=== PATIENT | male | born 1995 | race Caucasian/White ===

== ENCOUNTER 2017-10-03 14:05 | Emergency (ER) | payer OTHER, SELFPAY ==
[2017-10-03 14:06] VITALS: BP 167/104; PULSE 81; RESP 18; TEMP 37.6; BMI 28.3
--- NOTE | 2017-10-03 14:53 | ED.VISSUMM ---
- ER Visit Summary Date of Service: 10/03/17 Chief Complaint: Left finger laceration History of Present Illness: The patient is a 22 M with allergy to tetanus and no medical problems who presents for laceration to the base of the left index finger that occurred prior to arrival. 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 He slipped while trying to catch a piece that dropped, and stabbed himself in the finger. Patient controlled the hemorrhage with pressure and cornstarch application. He has no other complaints. No numbness or weakness in the finger. He is allergic to tetanus vaccination. Physical Examination: Patient is well-nourished well-developed in no distress sitting in bed. Examination of the right hand shows a 2+ radial pulse. V-shaped superficial incision at base of left index finger, just distal to MCP joint, 1 cm on each side of lac, with hemorrhage controlled. Distal sensation and motor function intact. Full active flexion and extension of all distal joints. Test Results: [] Emergency Department Course and Treatment: Hemorrhage already controlled, and wound edges are well approximated. No evidence of neurovascular injury. Patient uses his hands at work but is off for the next 3 days. AlumaFoam splint was placed to keep the index finger immobile to help promote healing of the laceration. Wound care instructions given. Return precautions given. Patient was discharged home. Treatment Plan: [] Disposition: [] Impression: Laceration to face of left index finger This note was generated with [employer] dictation software. It may contain incorrect words, spelling, and punctuation that were not noted in review of the chart prior to signing ED Disposition - Plan for ED Patient: Chief Complaint: Laceration Referrals: Care Physician,No Primary [Primary Care Provider] -
--- NOTE | 2017-10-03 14:56 | ED.DCSUM_ITS ---
- ER Visit Summary Date of Service: 10/03/17 Chief Complaint: Left finger laceration History of Present Illness: The patient is a 22 M with allergy to tetanus and no medical problems who presents for laceration to the base of the left index finger that occurred prior to arrival. 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 He slipped while trying to catch a piece that dropped, and stabbed himself in the finger. Patient controlled the hemorrhage with pressure and cornstarch application. He has no other complaints. No numbness or weakness in the finger. He is allergic to tetanus vaccination. Physical Examination: Patient is well-nourished well-developed in no distress sitting in bed. Examination of the right hand shows a 2+ radial pulse. V-shaped superficial incision at base of left index finger, just distal to MCP joint, 1 cm on each side of lac, with hemorrhage controlled. Distal sensation and motor function intact. Full active flexion and extension of all distal joints. Test Results: [] Emergency Department Course and Treatment: Hemorrhage already controlled, and wound edges are well approximated. No evidence of neurovascular injury. Patient uses his hands at work but is off for the next 3 days. AlumaFoam splint was placed to keep the index finger immobile to help promote healing of the laceration. Wound care instructions given. Return precautions given. Patient was discharged home. Treatment Plan: [] Disposition: [] Impression: Laceration to face of left index finger This note was generated with [email or web address] dictation software. It may contain incorrect words, spelling, and punctuation that were not noted in review of the chart prior to signing ED Disposition - Plan for ED Patient: Chief Complaint: Laceration Referrals: Care Physician,No Primary [Primary Care Provider] -
--- NOTE | 2017-10-03 14:58 | ED.DEP ---
ED Disposition - Plan for ED Patient: Disposition: Home or Assisted Living Chief Complaint: Laceration Instructions: ED Laceration Hand Referrals: Care Physician,No Primary [Primary Care Provider] -
[2017-10-03 15:47] VITALS: PULSE 88; RESP 16; O2SAT 97
== END 2017-10-03 15:52 | disposition home or self-care (01) ==
PROVIDERS: Emergency Provider Emergency Medicine
DX: S61.211A Laceration without foreign body of left index finger without damage to nail, initial encounter (principal); W26.0XXA Contact with knife, initial encounter; Y93.G3 Activity, cooking and baking; Y92.9 Unspecified place or not applicable; Y99.9 Unspecified external cause status
CPT/HCPCS: 99283

== ENCOUNTER 2020-07-17 17:28 | Outpatient (RCR) | payer OTHER, SELFPAY ==
[2020-07-17] MEDS: COVID-19 VACC, MRNA(PFIZER)/PF 30 MCG/0.3 ML SYRINGE IM (07:14)
[2020-08-07] MEDS: COVID-19 VACC, MRNA(PFIZER)/PF 30 MCG/0.3 ML SYRINGE IM (07:17)
== END 2020-07-17 23:59 ==
LOC: IMMUN 17:28
PROVIDERS: Visit Provider Family Medicine
DX: Z23 Encounter for immunization (principal)
CPT/HCPCS: 0001A; 0002A; 91300

== ENCOUNTER 2024-09-05 13:54 | Emergency (ER) | payer OTHER, SELFPAY ==
[2024-09-05 13:55] VITALS: BP 135/105; PULSE 90; RESP 17; TEMP 36.9; O2SAT 98; BMI 28.6
[2024-09-05 14:25] LABS: Absolute Lymphocyte Count 1.13 X10^3/uL (0.83-4.51); Basophil# 0.02 X10^3/uL; Basophil% 0.4 % (0-1); Hematocrit 43.8 % (40-54); Hemoglobin 16.2 g/dL (13.0-16.5); Lymphocyte # 1.13 X10^3/ul (0.83-4.51); Lymphocyte % 23.2 % (19-41); Mean Corpuscular Hgb 30.9 pg (27.0-32.0); Mean Corpuscular Volume 83.6 fL (80-94); Mean Platelet Vol. 8.9 fl (6.2-12.0); Monocyte# 0.69 X10^3/uL; Monocyte% 14.2 % (0-10); NRBC Flagged by Analyzer 0 % (0-5); Neutrophil % 61.6 % (47-70); Platelet Count 209 K/mm3 (150-450); RBC Distribution Width CV 12.4 % (11.6-14.6); RBC Distribution Width SD 37.6 fl (35.1-43.9); Red Blood Count 5.24 M/mm3 (4.6-6.2); White Blood Count 4.9 K/mm3 (4.4-11.0)
--- NOTE | 2024-09-05 14:40 | US_ITS ---
PROCEDURE: GALLBLADDER (USGB), 09/05/2024 REASON FOR EXAM: PAIN COMPARISON: None FINDINGS: Liver: Unremarkable. 17.3 cm in length. Gallbladder: Physiologically distended with layering sludge. No visualized stones, or pericholecystic fluid. Wall thickness measured at 5 mm but favored overestimated with remeasurement of 3 mm. Reportedly, sonographic Hensley's was positive. Biliary tree: CBD borderline mildly dilated for age at 7 mm. This measured roughly [address], reported separately. Pancreas: Partially obscured by shadowing bowel gas, grossly unremarkable as visualized. Right kidney: Unremarkable. 10.8 cm in length. Other: No visualized free fluid. US/Gallbladder IMPRESSION: 1. Findings related to the gallbladder are equivocal. No visualized cholelithi asis, however there is borderline minimal gallbladder wall thickening and reported positive sonographic Hensley's sign whi ch should be confirmed by clinician exam. No visualized pericholecystic fluid to confirm acute cholecystitis. Although mini mal gallbladder wall thickening could be technical, in addition to acute/chronic cholecystitis, this finding can also be seen in the setting of 3rd spacing, venous congestion, or may be reactive to a primarily hepatic process. If there is per sistent clinical ambiguity, consider HIDA. 2. Borderline minimal dilatation of the CBD for patient age without visualized choledocholithiasis or other obstructing process. Notably, CBD caliber was normal on concurrent CT. Correlate with serum bilirub in and consider MRCP. 3. Additional description as above. Reading Location: [id number]
[2024-09-05] MEDS: 0.9% Normal Saline (1000mL) 1,000 ML 999 ML IV (14:46)
--- NOTE | 2024-09-05 14:52 | ED.VIS.GI ---
HPI HPI - GI History of Present Illness Chief Complaint: Abd Pain Informant: patient Narrative Narrative: Right side abdominal pain started 3 days ago states went home from work. He states he was sweaty throughout the night. Patient reports to spouse that he was seeing things at night. Things improved the following day however had mild discomfort. Yesterday pain returned and worsened. Nausea when pain comes. No vomiting. Overnight watery yellow stool was nonbloody. No abdominal surgeries in the past. No urinary symptoms. Patient states able to eat last couple days with no worsening symptoms. His initial symptoms did start after eating supper. Prior similar symptoms: No PFSH PFSH Home Medications ?Medication ?Instructions ?Recorded ?Last Taken ?Type cetirizine 10 mg capsule (All Day 10 mg PO DAILY 09/05/24 09/05/24 History Allergy (cetirizine)) fluticasone propionate 50 1 spray intranasal DAILY 09/05/24 09/04/24 History mcg/actuation nasal spray,suspension (24 Hour Allergy Relief) montelukast 10 mg tablet 10 mg PO DAILY 09/05/24 09/05/24 History Allergy/AdvReac Type Severity Reaction Status Date / Time tetanus toxoid, adsorbed Allergy Other Verified 09/05/24 13:54 Social History Smoking Status: Never smoker ROS ROS ED Constitutional Constitutional ED: Denies chills, fever(s) or sweats ENT ENT ED: Denies sore throat Cardiovascular Cardiovascular: Denies chest pain, leg edema, palpitations or racing heartbeat Respiratory/Chest Respiratory/Chest: Denies cough, dyspnea or dyspnea on exertion Gastrointestinal Gastrointestinal: Reports abdominal pain; Denies diarrhea, nausea or vomiting Genitourinary Genitourinary ED: Denies dysuria, hematuria or urinary frequency Musculoskeletal Musculoskeletal: Denies back pain, extremity pain or neck pain Integumentary Denies rash or wounds Neurologic Neurologic: Denies headache(s), paresthesias or weakness EXAM Physical Exam Const Vital Signs: 09/05/24 13:55 09/05/24 15:54 Temperature 98.5 F Temperature Source Temporal Pulse Rate 90 80 Respiratory Rate 17 12 Blood Pressure 135/105 H 148/94 H Blood Pressure Mean 115 112 Pulse Ox 98 98 Oxygen Delivery Method Room Air Room Air Positive well nourished and well developed General Appearance ED: well developed and NAD HEENT Reports moist mucous membranes normocephalic and atraumatic Eyes General Eye ED: Yes normal appearance of both eyes Neck full ROM Chest Wall Chest: Negative for tenderness Resp normal respiratory effort and normal air movement Effort and Inspection: symmetric chest movement; Negative for respiratory distress Cardio regular rate, regular rhythm and no murmurs Peripheral Pulses: pulses 2+ throughout GI normal to inspection, nondistended, normoactive bowel sounds GI Narrative: Patient with tenderness right side to center of the rib however negative Hensley sign. No pain right lower quadrant. Negative Rovsing's. No guarding or rebound. Palpation: Negative for guarding or rebound tenderness present Extremity normal to inspection General Extremety ED: Negative for edema or tenderness General Extremity: Negative for edema Neuro oriented x3 and no sensory deficits noted Sensorium / Orientation: awake and alert Skin no rashes or lesions noted and no wounds MDM MDM MDM Narrative Medical decision making narrative: Interventions / MDM: Differential diagnosis: Biliary colic, abdominal pain Diagnosis considered but do not suspect: No clinical cholecystitis, appendicitis however CT negative. My EKG interpretation: N/A Imaging independently reviewed and interpreted by myself: CT abdomen pelvis IV contrast: Normal appendix, mesenteric adenitis noted. Right upper quadrant ultrasound: Gallbladder wall 5 mm positive Hensley sign, no gallstones no pericholecystic fluid. External documents reviewed: N/A Test considered but not ordered:N/A ED course: Patient declines any pain medications. Mild dry mucosal membranes. IV established fluids abdominal labs per nursing protocol. Pain in the right upper quadrant region however he is able to eat without any worsening pain. He is having sweats at home. More loose stools. I will obtain both ultrasound right upper quadrant and CT scan of abdomen for further evaluation. 1620: We discussed with the patient with equivocal ultrasound he ate chicken with carrots no rancher since Tuesday with symptoms started an hour later. He is can had mild symptoms that did not bother him until yesterday. Apparently ate mashed potatoes did have cream cheese in it. This morning at 10:00 he had sausage that worsen the symptoms. 1625: I spoke with on-call surgeon Dr. Strong, discussed patient's history and findings. He reviewed the imaging she did not feel the gallbladder causey are thickened. I do agree that this likely gallbladder issues, however no clinical cholecystitis this time. We discussed options for the patient if concerns for pain which is not requiring pain medicine at that time can admit to the hospital versus close outpatient follow-up in the office reevaluation discussion for elective surgery and strict return precautions. Patient elects to continue bland diet with follow-up in surgery office. All questions were answered. Re-evaluation: stable Disposition discussed with patient/family/significant other: Patient and spouse Case discussed with consulting clinician: General Surgery This note was generated with [employer] dictation software. It may contain incorrect words, spelling, and punctuation that were not noted in checking the note before signing. Lab Data Attestation: I reviewed the patient's lab results. Labs: Laboratory Results - last 24 hr 09/05/24 09/05/24 14:17 15:35 WBC 4.9 RBC 5.24 Hgb 16.2 Hct 43.8 MCV 83.6 MCH 30.9 MCHC 37.0 H RDW Std Deviation 37.6 RDW Coeff of Juliann 12.4 Plt Count 209 MPV 8.9 Immature Gran % (Auto) 0.600 Neut % (Auto) 61.6 Lymph % (Auto) 23.2 [place] % (Auto) 14.2 H Eos % (Auto) 0.0 Baso % (Auto) 0.4 Absolute Neuts (auto) 3.0 Absolute Lymphs (auto) 1.13 Nucleated RBC % 0 Sodium 138 Potassium 3.9 Chloride 102 Carbon Dioxide 24.9 Anion Gap 11 BUN 12 Creatinine 0.89 Estim Creat Clear Calc 130.26 Est GFR (MDRD) Non-Af 119 BUN/Creatinine Ratio 13.7 Glucose 108 H Calcium 8.9 Total Bilirubin 1.17 AST 22 ALT 20 Alkaline Phosphatase 81 Total Protein 7.0 Albumin 4.4 Globulin 2.6 Albumin/Globulin Ratio 1.7 Lipase 22 Urine Color Yellow Urine Clarity Clear Urine pH 7.0 Ur Specific [place] 1.005 Urine Protein TNP Urine Glucose (UA) Normal Urine Ketones Negative Urine Occult Blood Negative Urine Nitrite Negative Urine Bilirubin Negative Urine Urobilinogen Normal Ur Leukocyte Esterase Negative Radiography Diagnostic Testing: Clinical Impression(s) from Imaging Studies Gallbladder Ultrasound 09/05/24 14:40 IMPRESSION: 1. Findings related to the gallbladder are equivocal. No visualized cholelithiasis, however there is borderline minimal gallbladder wall thickening and reported positive sonographic Hensley's sign which should be confirmed by clinician exam. No visualized pericholecystic fluid to confirm acute cholecystitis. Although minimal gallbladder wall thickening could be technical, in addition to acute/chronic cholecystitis, this finding can also be seen in the setting of 3rd spacing, venous congestion, or may be reactive to a primarily hepatic process. If there is persistent clinical ambiguity, consider HIDA. 2. Borderline minimal dilatation of the CBD for patient age without visualized choledocholithiasis or other obstructing process. Notably, CBD caliber was normal on concurrent CT. Correlate with serum bilirubin and consider MRCP. 3. Additional description as above. Reading Location: [facility] Abdomen/Pelvis CT 09/05/24 14:55 IMPRESSION: 1. No clear acute findings. 2. Mild mesenteric lymphadenopathy, nonspecific and potentially reactive in the absence of known malignancy. Note that this finding can be seen in the setting of mesenteric adenitis given the appropriate clinical context. 3. Mild splenomegaly. 4. Additional description as above. Reading Location: [facility] Discharge Plan Triage Chief Complaint: Abd Pain ED Provider: Yosvany Collazo Dx/Rx/DC Orders Clinical Impression: Biliary colic, Abdominal pain Instructions: ED Gallstones with Biliary Colic Prescriptions: No Action montelukast 10 mg tablet 10 mg PO DAILY All Day Allergy (cetirizine) 10 mg capsule 10 mg PO DAILY fluticasone propionate [24 Hour Allergy Relief] 50 mcg/actuation spray,suspension 1 spray intranasal DAILY Rx Instructions: administer into each nostril Primary Care Provider: Celeste Sierra NP Referrals: Candace Strong MD [Med Staff - Active Staff] - 2 Days Celeste Sierra NP, [employer]HOU[employer] WORKER-C [Primary Care Provider] - Activity Restrictions/Additional Instructions: Discussed with Dr. Strong in the ED. No gallstones, no acute inflammation on ultrasound. Labs are normal. Avoid greasy foods dairy foods fatty foods. Call to be seen in the office by the end the week. Plan for outpatient procedure if needed. If you develop worsening symptoms, return to the ED. Print Language: Armenian Disposition Disposition: Home, Self Care
--- NOTE | 2024-09-05 14:55 | CT_ITS ---
PROCEDURE: ABDOMEN/PELVIS W IV CONT ONLY (procedure code [id number]), 09/05/2024 REASON FOR EXAM: RIGHT SIDE PAIN TECHNIQUE: CT abdomen and pelvis was performed with IV contrast. Multiplanar reformats were generated. CONTRAST: Isovue-300 VOLUME: 98mL RADIATION DOSE SUMMARY: CTDlvol: 12.15+ 11.13 mGy DLP: 582.87 mGycm One or more dose reduction techniques were used (e.g., Automated exposure control, adjustment of the mA and/or kV according to patient size, use of iterative reconstruction technique). COMPARISON: None FINDINGS: Lung bases: Minimal atelectasis/scarring.. Liver: Unremarkable. Spleen: Mild splenomegaly, 14.3 cm coronal.. Gallbladder: Grossly unremarkable though better evaluated on concurrent separately dictated ultrasound. Pancreas: Unremarkable. Adrenals: Unremarkable. Kidneys: Unremarkable. Bowel: Unremarkable. Normal caliber appendix. Lymph nodes: Mild mesenteric lymphadenopathy, nodes up to 11 mm short axis. Mildly prominent but nonenlarged retroperitoneal nodes Vasculature: Unremarkable. Peritoneum: Unremarkable. Bladder: Underdistended and suboptimally evaluated, grossly unremarkable. Reproductive Organs: 1.8 cm posterior midline presumed prostatic utricle cyst, normal variant. Body Wall: Tiny fat containing umbilical hernia.. Bones: Unremarkable. CT/Abdomen/Pelvis W IV Cont ONLY IMPRESSION: 1. No clear acute findings. 2. Mild mesenteric lymphadenopathy, nonspecific and potentially reactive in the absence of known malignancy. Note that this finding can be seen in the setting of mesenteric adenitis given the appropriate clinical context. 3. Mild splenomegaly. 4. Additional description as above. Reading Location: [id number]
[2024-09-05 15:20] LABS: ALB/GLOB Ratio 1.7 RATIO (0.9-2.4); AST(SGOT) 22 U/L (<=37); Alanine Aminotransfer ALT/SGPT 20 U/L (<=46); Albumin, Serum 4.4 g/dL (3.5-5.0); Alkaline Phosphatase 81 U/L (40-129); Anion Gap 11 (5-15); BUN 12 mg/dL (4-19); BUN/Creat Ratio 13.7 RATIO (10-20); Calcium,Total 8.9 mg/dL (7.6-11.0); Carbon Dioxide 24.9 mmol/L (21.0-32.0); Chloride 102 mmol/L (98-108); Creatinine, Serum 0.89 mg/dL (0.70-1.20); EST Glomerular Filtration Rate 119 (>60); Estimated Creatinine Clearance 130.26 ml/min (50-250); Globulin 2.6 g/dL (2.2-4.2); Glucose 108 mg/dL (70-99); Lipase 22 U/L (13-75); Potassium 3.9 mmol/L (3.3-5.1); Sodium Level 138 mmol/L (133-145); Total Bilirubin 1.17 mg/dL (0.00-1.30)
[2024-09-05 15:42] LABS: Bacteria 0 SEEN /hpf (None Seen); Mucous, Urine 0 SEEN /hpf (<or=2+)
[2024-09-05 15:51] LABS: Color, Urine Yellow (Yellow); Glucose, Dipstick Normal (Normal); Ketone-Dipstick Negative (Negative); Leukocyte Esterase-Dipstick Negative /ul (Negative); Nitrite-Dipstick Negative (Negative); Occult Blood-Urine Negative /ul (Negative); Specific Gravity, Urine 1.005 (1.002-1.030); Urine Bilirubin Dipstick Negative (Negative); Urine Clarity Clear (Clear); Urine Urobilinogen Normal (Normal)
[2024-09-05 15:54] VITALS: BP 148/94; PULSE 80; RESP 12; O2SAT 98
[2024-09-05 17:00] VITALS: BP 102/67; PULSE 66; RESP 18; O2SAT 99
[2024-09-05 17:05] VITALS: BP 117/81; PULSE 88; RESP 16; TEMP 37.1; O2SAT 100
[2024-09-05 17:35] LABS: Red Blood Cells-Urine 0-5 SEEN /hpf (0-5); Squamous Epithelial Cells - UA 0-5 SEEN /hpf (0-5); White Blood Cells 0-5 SEEN /hpf (0-5)
[2024-09-05 17:45] LABS: Protein, Urine (Random) 7.5 mg/dL (0.0-12.0)
== END 2024-09-05 17:07 | disposition home or self-care (01) ==
PROVIDERS: Emergency Provider Emergency Medicine; PCP Nurse Practitioner; Referring Provider Emergency Medicine; Visit Provider Emergency Medicine
DX: K80.50 Calculus of bile duct without cholangitis or cholecystitis without obstruction (principal); I88.0 Nonspecific mesenteric lymphadenitis; R19.7 Diarrhea, unspecified; Z79.899 Other long term (current) drug therapy
CPT/HCPCS: 74177; 76705; 80053; 81001; 83690; 84156; 85025; 96360; 99283; Q9967; A4216

== ENCOUNTER 2024-09-13 05:59 | Day surgery (SDC) | payer OTHER, SELFPAY ==
[2024-09-13] VITALS (12 sets, daily range): BP systolic 115–133; BP diastolic 69–89; PULSE 72–84; RESP 14–18; TEMP 36.6–37.1; O2SAT 95–100; BMI 28.1
--- NOTE | 2024-09-13 06:31 | EKG12_ITS ---
Test Reason : PREOP Blood Pressure : */* mmHG Vent. Rate : 71 BPM Atrial Rate : 71 BPM P-R Int : 174 ms QRS Dur : 94 ms QT Int : 398 ms P-R-T Axes : 30 42 35 degrees QTcB Int : 432 ms Normal sinus rhythm Normal ECG No previous ECGs available Confirmed by Fran Telles ([id number]), book or script editor CHAPARRO ANTUNEZ ([id number]) on 09/17/2024 11:57:57 AM Referred By: Candace Strong Confirmed By: Fran Telles
[2024-09-13] MEDS: Lactated Ringers 1,000 ML 15 ML IV (06:47)
[2024-09-13] MEDS: INDOCYANINE GREEN 3.75 MG in Syringe 1.5 ML 999 MG IV (06:48)
--- NOTE | 2024-09-13 07:00 | PRE.ANES_ITS ---
ASA Classification* ASA Classification ASA Classification: 1 Assessment & Plan Anesthesia* Anesthesia Assessment Anesthesia Assessment: Discussed sedation and/or anesthesia options, risks, benefits, and alternatives with patient/parents/legal guardian/POA. Questions invited. The patient/parents/legal guardian/POA seems to understand and agrees to proceed with anesthesia plan. Reviewed the physical assessment, medical history, allergy history and patient home medications list prior to surgery/procedure/anesthetic and documented any changes. Performed airway and anesthesia risk assessments. Anesthesia Type Anesthesia Type: General History Source History Obtained from:: Patient and Chart Anesthesia Focused Assessment* Temperature: 97.8 F Pulse Rate: 72 Blood Pressure: 133/89 Respiratory Rate: 18 Pulse Ox: 98 Oxygen Delivery Method: Room Air Airway Assessment Mouth opens: >3 cm Mallampati Score: III (Patient has a full you.) Teeth Condition: Intact Neck Range of motion (ROM): Full ROM Focused Labs Anesthesia Preop lab: CBC WBC 4.9 K/mm3 (4.4-11.0) 09/05/24 14:17 09/05/24 RBC 5.24 M/mm3 (4.6-6.2) 09/05/24 14:17 09/05/24 Hgb 16.2 g/dL (13.0-16.5) 09/05/24 14:17 09/05/24 Hct 43.8 % (40-54) 09/05/24 14:17 09/05/24 Plt Count 209 K/mm3 (150-450) 09/05/24 14:17 09/05/24 CHEMISTRY Potassium 3.9 mmol/L (3.3-5.1) 09/05/24 14:17 09/05/24 Sodium 138 mmol/L (133-145) 09/05/24 14:17 09/05/24 BUN 12 mg/dL (4-19) 09/05/24 14:17 09/05/24 Creatinine 0.89 mg/dL (0.70-1.20) 09/05/24 14:17 09/05/24 Glucose 108 mg/dL (70-99) H 09/05/24 14:17 09/05/24 COAG Pre-Assessment Diagnosis/Proposed Procedure Planned Operative Procedure(s): Robotic Cholecystectomy with possible IOC Anesthesia History Anesthesia History - medical imaging technologist: Anesthesia History - medical imaging technologist Hx Hospitalization No 09/11/24 13:14 Any Problems With Anesthesia No 09/11/24 13:14 Cholinesterase deficiency No 09/11/24 13:14 You/Your Family Experience No 09/11/24 13:14 fever (hyperthermia) with Relationship Recent Exposure to Contagious No 09/13/24 06:32 Disease Does patient have nerve No 09/11/24 13:14 stimulator Patient instructed to have device shut off --Does patient have Pacemaker No 09/13/24 06:36 or ICD? When Was Last Pacemaker Check QUESTION #4 FULL TEXT: You/Your Family Experience fever (hyperthermia) with Anesthesia Last Oral Intake Last Oral intake: Last Oral Intake NPO since 21:30 09/13/24 06:36 Meds taken in AM with sips of Yes 09/13/24 06:36 water? Meds patient instructed to take am of surgery Any additional information?: Yes Meds taken in AM with sips of water?: Yes Meds patient instructed to take am of surgery: Omeprazole PONV PONV - medical imaging technologist: PONV - medical imaging technologist Female No 09/11/24 13:14 HX of Motion Sickness Yes 09/11/24 13:14 HX of N/V After Surgery No 09/11/24 13:14 Non-Smoker Yes 09/11/24 13:14 Duration of Surgery greater Yes 09/11/24 13:14 than 60 minutes Number of Risk Factors 3 09/11/24 13:14 PONV Score Moderate Risk 09/11/24 13:14 Height & Weight Height & Weight: Anesthesia: Height & Weight Height 5 ft 8 in 09/13/24 06:36 Weight: 83.915 kg 09/13/24 06:36 Body Mass Index (BMI) 28.1 09/13/24 06:36 Respiratory Assessment Respiratory Assessment - medical imaging technologist: Respiratory Tract Infection Hx - medical imaging technologist Hx Respiratory Tract Infection No 09/11/24 13:14 STOP Sleep Apnea STOP Sleep Apnea - medical imaging technologist: STOP Sleep Apnea - medical imaging technologist Hx Hypertension No 09/11/24 13:14 Hx Sleep Apnea No 09/11/24 13:14 CPAP BIPAP Do you snore loudly (louder No 09/11/24 13:14 than talking or can be heard Do you often feel tired/ No 09/11/24 13:14 fatigued/ sleepy during daytime? Has anyone observed you stop No 09/11/24 13:14 breathing during sleep? STOP Results Negative 09/11/24 13:14 QUESTION #5 FULL TEXT : Do you snore loudly (louder than talking or can be heard through closed doors)? 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 Specify any problems Hx of Preganancy in last 3 N/A 09/11/24 13:14 Months Nurse Filling Out Transfusion VCHRISTIN 09/11/24 13:14 & Questions: Date: 09/11/24 09/11/24 13:14 Time: 13:15 09/11/24 13:14 Patient unable to answer at this time (ie. confused, unrespo /Reproduction History /Reproductive History - medical imaging technologist: /Reproductive Hx- medical imaging technologist Hx Now Gestational Age (in weeks): EDC: Hx Hx Para Hx Section SAB Active Medications Active Medications: Current Medications Generic Name Dose Route Start Last Admin Trade Name Freq PRN Reason Stop Dose Admin Cefazolin Sodium 2 gm/ Sodium 110 mls @ 150 mls/hr 09/13/24 12:35 Chloride IV 09/13/24 13:18 INTRAOP ONE Lactated Ringer's 1,000 mls @ 15 mls/hr 09/13/24 06:15 09/13/24 06:47 IV 15 mls/hr .Q48H MORGAN Administration PFSH Medical History Alcohol use Injury of back Migraine headache Non-smoker Cardiology follow-up encounter History of irregular heartbeat Home Medications ?Medication ?Instructions ?Recorded ?Last Taken ?Type cetirizine 10 mg capsule (All Day 10 mg PO DAILY 09/0509/12/24 History Allergy (cetirizine)) fluticasone propionate 50 1 spray intranasal DAILY 09/12/24 History mcg/actuation nasal spray,suspension (24 Hour Allergy Relief) montelukast 10 mg tablet 10 mg PO DAILY 09/05/2411/30 History Lactobacillus acidophilus 10 100 mmu cells PO DAILY 09/11/24 History billion cell capsule (NewFlora) omeprazole 20 mg capsule,delayed 40 mg PO DAILY 09/13/24 04:30 History release Allergy/AdvReac Type Severity Reaction Status Date / Time latex Allergy Severe RASH Verified 09/13/24 06:30 tetanus toxoid, adsorbed Allergy Other Verified 09/13/24 06:30 Social History Smoking Status: Never smoker alcohol intake: current alcohol intake frequency: holidays/special occasions only Review of Systems (Anesthesia) ROS Narrative System reviewed and no additional complaints, except as documented.
--- NOTE | 2024-09-13 07:03 | HP.PCM_ITS ---
History and Physical Date of Admission: 09/13/24 Date of Service: 09/07/24 MR#: [id number] Acct: [id number] Name: NBA CARTER Rep #: [id number] : 1995 Provider: Dr. Candace Strong MD Age/Sex: 29/M Location: [facility] Status: Signed Intake Vital Signs 09/05/2512:55 09/07/2507:43 09/07/2513:25 09/07/2513:53 Height 5 ft 8 in 5 ft 8 in 5 ft 8 in Weight: 189 lb BMI 28.7 BP 169/123 H 138/89 H Blood Pressure Location Rt brachial Rt brachial Position Sitting Sitting Respiration 17 Pulse 72 Pulse Source Monitor Temp 97.3 F L Temp Source Temporal Pulse Oximetry (%) 99 Oxygen Delivery Method room air Intake Visit Reasons: ED FU, ABDOMINAL PAIN Chief Complaint: ED FU, ABDOMINAL PAIN Accompanied by: Is patient in pain?: No Allergies tetanus toxoid, adsorbed Allergy (Verified 09/07/24 14:26) Other Medications ?Medication ?Instructions ?Recorded ?Confirmed ?Type cetirizine 10 mg capsule (All Day 10 mg PO DAILY 09/05/24 09/07/24 History Allergy (cetirizine)) fluticasone propionate 50 1 spray intranasal DAILY 09/05/24 History mcg/actuation nasal spray,suspension (24 Hour Allergy Relief) montelukast 10 mg tablet 10 mg PO DAILY 09/05/24 09/07/24 History PFSH Social History (Updated 09/07/24 @ 14:25 by Manuela Bermudez LPN) Smoking Status: Never smoker alcohol intake: current alcohol intake frequency: holidays/special occasions only HPI HPI HPI: 29-year-old male presents due to gallbladder sludge/right upper quadrant pain. Patient did go to the ER labs were normal at that time CAT scan showed normal gallbladder however gallbladder ultrasound showed gallbladder sludge wall measured 2.2-2.9 per tech, positive Hensley sign per tech, normal common bile duct no pericholecystic fluid. Patient states he did get pain about an hour after eating mashed potatoes on Tuesday which did have sour cream in them as well as on Tuesday after eating some sausage in the morning. Currently patient states his pain is a 2/10. Patient states that he is eating normally had loose stool for about 10 years will frequently have crampy abdominal pain while eating or just after eating have to go use the restroom. Patient did does admit to some indigestion in his lower chest does not describe as burning. No previous abdominal surgeries. ROS General General: No weight change, appetite, fatigue, colon cancer, breast cancer or weakness HEENT HEENT: No difficulty swallowing, eye injury, eye surgery, swollen glands or hoarseness Endo Endocrine: No thyroid disease, diabetes mellitus, thyroid cancer, Hair loss, heat intolerance or cold intolerance Skin Skin: No rash or changing moles Musc Musculoskeletal: No back problems, arthritis, rheumatoid arthritis, gout or joint pain Cardio Cardiovascular: No murmur, pacemaker, heart disease, atrial fibrillation, high blood pressure, heart attack, heart stent, palpitations, shortness of breath with exertion or chest pain Psych Psychiatric: No depression, anxiety or hearing voices Resp Respiratory: No shortness of breath, No sleep apnea, No cough, No COPD, No asthma, No emphysema and No wheezing Gastro Gastrointestinal: Yes abdominal pain, Yes nausea or vomiting, No diarrhea, No constipation, No blood in stool, No acid reflux, No hemorrhoids, No ulcers, Yes gallbladder problem and No black,tarry stools Be Hematologic: No blood thinners, No blood disorders, No bleeding, No anemia and No blood clots Neuro Neurologic: No numbness, No tingling and No weakness Exam Const General: cooperative, healthy appearing, comfortable and no acute distress HENMT Head: normocephalic and atraumatic Neck Neck: supple Resp Effort & Inspection: normal respiratory effort Cardio Rate: regular rate GI Inspection: non-distended Palpation: soft, no hernias and tender (Mild right upper quadrant, no peritoneal signs) Skin General: no rashes or lesions noted Neuro General: CN's II-XI intact bilaterally Extrem General: normal to inspection Psych Mental Status: mental status grossly normal Attitude: cooperative Assessment and Plan Assessment and Plan (1) Gallbladder sludge: Status: Acute (2) RUQ pain: Status: Acute Plan Discussed with patient that he may also have an element of IBS with the cramping after eating and diarrhea which may not be related to his gallbladder. As the right upper quadrant pain is new from Tuesday. May try dicyclomine after cholecystectomy to see if the crampy abdominal pain is still present after surgery. Also recommend patient do [id number] omeprazole 40 mg p.o. daily in the perioperative time period. Instructed patient to avoid any fatty or greasy foods until surgery. Did offer patient a sooner surgery date however work the best for him next week. Patient aware if pain gets worse to come into the ER and may need more emergent cholecystectomy. Reviewed the anatomy with the patient and discussed the procedure: Robotic/laparoscopic cholecystectomy with possible cholangiograms, possible open. Review risks including but not limited to bleeding, infection, hernia, bile leak, retained gallstones requiring another procedure ERCP- Endoscopic Retrograde Cholangiopancreatography, injury to another organ (bile ducts, common bile duct, small bowel, etc.) and conversion to an open procedure. All questions were answered. Candace Strong M.D. Pager: [phone] [facility] [address] [place] [address], [address] [place] [address] Office: [phone] Coding Level of Care Code Off vis,new,level 3 Diagnoses Gallbladder sludge K82.8 RUQ pain R10.11 09/07/24 1504 <Electronically signed by Candace Strong MD> Date Candace Strong MD
--- NOTE | 2024-09-13 07:30 | GALL_PTH ---
PATIENT: NBA CARTER LOC: [facility] U#:[id number] AGE/SX: 29/M ROOM: RE09/13/[address]: Dr. Candace Strong MD : 1995 BED: DIS: 09/13/2024 SPEC #: [id number] RECD: 09/13/24 10:14 STATUS: MALATHI REMarisel #: [id number] KATTY: 09/13/24 07:[address]: Candace Strong DEPT: SURGICAL PATHOLOGY RECD BY: James Galeano ENTERED: 09/13/24 11:43 SP TYPE: JUAN LO DR: Celeste Sierra, JIMENEZ Tissues: A - Gallbladder, NOS Procedures: Surgery Specimen Level III HEADER OPERATION: Robotic cholecystectomy PRE-OP DIAGNOSIS: Gallbladder sludge, right upper quadrant pain TISSUE SUBMITTED: A- Gallbladder MICROSCOPIC DIAGNOSIS A. Gallbladder, cholecystectomy: * Mild chronic cholecystitis with focal cholesterolosis MICROSCOPIC DESCRIPTION Slides are reviewed. GROSS DESCRIPTION A. Received in formalin in a container labeled with the patient's name, date of , and gallbladder is a 7.6 x 3.2 x 3.2 cm intact cholecystectomy specimen. A clamped cystic duct margin is identified measuring 0.3 cm in length by 0.2 cm in diameter (inked black). The serosa is green-lundy, smooth, and glistening with an opposing roughened and cauterized hepatic bed. The specimen is opened to reveal an abundance of thick green bile with no stones identified in the specimen or in the container. The mucosa is bile-stained green with diffuse chowdhury stippling. There is an average wall thickness of 0.3 cm. Manager Bridge sections are submitted in A1 (including cystic duct margin, en face with full-thickness sections). [facility] 09-13-2024 CPT:06973
[2024-09-13] MEDS: Cefazolin 2 GM in 0.9% Normal Saline (100mL Bag) 100 ML IV (07:40)
[2024-09-13] MEDS: Bupiv/Epi 0.25% 30 ML Vial (08:47)
--- NOTE | 2024-09-13 09:07 | OP.PCM_ITS ---
Operative Report (Standard) Operative Information Date of Procedure: 09/13/24 Pre-Operative Diagnosis: Cholelithiasis, right upper quadrant pain Post-Operative Diagnosis: Same Surgery/Procedure Performed: Robotic cholecystectomy with ICG circuit court clerk: Yes Infantry Weapons Crewmember: Héctor Dan Tasks completed by real estate administrative assistant: Opening & closing and Retracting Type of Anesthesia: General/Supplemental RN Documented Start/Stop Times: Operation Date: 09/13/24 07:30 Case Time Into Pre-Op 09/13/24 06:08 Out of Pre-Op 09/13/24 07:22 Anesthesia Start 09/13/24 07:25 Into Room 09/13/24 07:25 Procedure Start 09/13/24 07:52 Procedure End 09/13/24 09:05 Anesthesia End 09/13/24 09:10 Out of Room 09/13/24 09:10 Into Recovery 09/13/24 09:12 Into Phase II Recovery 09/13/24 10:41 Out of Recovery 09/13/24 10:41 Out of Phase II 09/13/24 11:33 Procedure Start Time: 07:52 Procedure Stop Time: 09:05 Select all DRAINS/GRAFTS/IMPLANTS that apply: None Special Medications: Ancef 2 g IV x 1 Estimated Blood Loss: 10 cc Specimen collected: Yes Description of specimen(s) removed: Gallbladder Description of surgery: Indications: this is a 29 year-old male who developed abdominal pain/nausea/vomiting and on workup was found to have cholelithiasis, with a normal common bile duct. Laparoscopic cholecystectomy was elected. Description procedure: The patient was placed on operating table in supine position. A timeout was completed verifying correct patient, procedure, site, position and special equipment prior to beginning procedure. General Anesthesia was induced. The abdomen was prepped and draped in usual sterile fashion. An incision was made in the natural skin line below the umbilicus. The fascia was elevated and incised. The peritoneum was elevated and incised. Entry into the peritoneum was confirmed visually and no bowel was noted in the vicinity of the incision. Gomez trocar was placed. The abdomen was insufflated with carbon dioxide to a pressure of 12-15 mmHg. Patient tolerated insufflation well. The laparoscope was then inserted and abdomen inspected. No injuries from initial trocar placement were noted. Additional trochars were then inserted in the following locations 8 mm trocar left upper quadrant and 2 more 8 mm trochars in right lower quadrant and left lower quadrant. The abdomen was inspected no abnormalities were found. The table is placed in reverse Trendelenburg position with the right side up. Robot was docked. The dome of the gallbladder was grasped with atraumatic grasper passed through the lateral port and retracted over the dome of the liver. Infundibulum was then grasped with atraumatic grasper through the midclavicular port and retracted to the right lower quadrant. This maneuver exposed Calot's triangle. The peritoneum overlying the gallbladder infundibulum was then incised and cystic duct and artery identified and circumferentially dissected. ICG was used to visualize the cystic duct. The cystic duct and artery were then doubly clipped and divided close to the gallbladder. The gallbladder then dissected from its peritoneal attachments by electrocautery. Hemostasis was checked and the gallbladder was removed using the endoscopic retrieval bag through the umbilical port. The gallbladder is passed off table as specimen. The gallbladder fossa was irrigated with saline and hemostasis obtained. There is no evidence of bleeding from the gallbladder fossa or cystic artery leakage of bile from the cystic duct stump. Secondary trochars removed under direct vision. No bleeding was noted the trocar sites. The laparoscope was withdrawn and umbilical trocar removed. The abdomen was allowed to collapse. The fascia of the 12 mm trocar was closed with a [id number] 0 PDS suture. The skin was closed with sutures of 4-0 Monocryl and Steri-Strips. The patient was extubated. The patient tolerated procedure well and was taken to the postanesthesia care unit in stable condition. Surgical Findings: See operative report Complications Complications: No
--- NOTE | 2024-09-13 09:10 | EX.PCM.DISCH ---
Discharge Instructions Diet Discharge Diet: Light diet - advance as tolerated Activity Discharge Activity: May Not Drive (while taking narcotic pain medications.) May shower in (days): 1 Lifting Restrictions: no lifting >20 lbs x 2 wks, no strenuous exercise for 4 wks Dressing / Incision Call your doctor if your incision/area has: Continuous Slow Oozing, Sudden Increased Bleeding, Increased Pain/ Swelling, Increased Redness, Foul Smelling Discharge and Swelling at the incision site Call your doctor if you observe: Fever of 101 or Higher Remove Dressing in: 2 days Cleanse incision/area with: Soap & Water Additional Dressing/Incision Instructions:: Steri-Strips will fall off in 7 to 10 days, if they do not fall off okay to remove after 10 days. Follow Up Care Please Follow Up With: Candace Strong MD When: Call the office for a follow-up appointment 2 weeks; after 5 PM and on the weekends call [phone] with any concerns. Test Results: Test results from this visit will be discussed in further detail at your follow-up appointment, if applicable. Discharge Plan Admission Attending Provider: Candace Strong Primary Care Provider: Celeste Sierra RED HAT LINUX ADMINISTRATOR Instructions Additional Instructions / Restrictions: Okay to take ibuprofen 400-600 mg PO q6hr PRN and Tylenol 650 to 1000 mg p.o. every 6 hours as needed along with the tramadol. Take all pain meds with food. Tramadol can cause constipation recommend taking daily stool softener (i.e. Colace/docusate) while taking the pain meds. Recommend starting some MiraLAX in 1 to 2 days if no bowel movement. If still no bowel movement the following day recommend taking additional MiraLAX versus magnesium citrate half the bottle and waiting 4-6 hours if still no results take the other half the bottle. Print Language: Hungarian Discharge Orders/Prescriptions Prescriptions: New tramadol 50 mg tablet 50 mg PO Q6H PRN (Reason: pain) 3 Days Qty: 7 0RF Continued montelukast 10 mg tablet 10 mg PO DAILY All Day Allergy (cetirizine) 10 mg capsule 10 mg PO DAILY fluticasone propionate [24 Hour Allergy Relief] 50 mcg/actuation spray,suspension 1 spray intranasal DAILY Rx Instructions: administer into each nostril omeprazole 20 mg capsule,delayed release(DR/EC) 40 mg PO DAILY NewFlora 10 billion cell capsule 100 mmu cells PO DAILY Referrals / Follow Up: Celeste Sierra RED HAT LINUX ADMINISTRATOR, RED HAT LINUX ADMINISTRATOR-C [Primary Care Provider] - Disposition Disposition (needs filled in before D/C Order can be placed): Home, Self Care
--- NOTE | 2024-09-13 09:14 | PCM.POST.ANE ---
Anesthesia: Postop Eval I Current Vital Signs Temperature: 98.8 F Pulse Rate: 78 Blood Pressure: 123/72 Respiratory Rate: 16 Pulse Ox: 100 Oxygen Delivery Method: Room Air Assessment Airway patent: Yes Spontaneous unlabored respirations: Yes Mental status: Awake and Calm nausea: Yes Vomiting: No Anesthesia Complication: No Fluid Hydration Crystalloid volume administer (ml): 1,100 Total IV fluid infused: 1,100 Progress Note Anesthesia document: Postop Eval 1 completed: Yes
[2024-09-13] MEDS: Ketorolac 30 MG/ML Syringe IV (09:59)
--- NOTE | 2024-09-13 11:07 | POSTOPAN2_ITS ---
Anesthesia Postop Eval I Sum Postop Eval Completion status Anesthesia document: Postop Eval 1 completed: Yes Anesthesia Postop Eval I Summary Anesthesia Postop Eval I Summary: Anesthesia Postop Eval I: Assessment Summary Airway patent Yes 09/13/24 09:15 OFFICE SUPPORT [email or web address] Spontaneous unlabored Yes 09/13/24 09:15 OFFICE SUPPORT [email or web address] respirations Mental status Awake,Calm 09/13/24 09:15 OFFICE SUPPORT [email or web address] nausea Yes 09/13/24 09:15 OFFICE SUPPORT [email or web address] Vomiting No 09/13/24 09:15 OFFICE SUPPORT [email or web address] Anesthesia Postop Eval I: Fluid Summary Crystalloid volume administer 1,100 09/13/24 09:15 OFFICE SUPPORT [email or web address] (ml) Colloids volume administered ( ml) Blood Product volume administered (ml) Total IV fluid infused 1,100 09/13/24 09:15 OFFICE SUPPORT [email or web address] Anesthesia Postop Eval I: Summary Notes Anesthesia Complication No 09/13/24 09:15 OFFICE SUPPORT [email or web address] Anesthesia Complication Comment: Post-operative progress note Anesthesia: Postop Eval II Evaluation Mental status: Awake Pain Level: 3 nausea: No Vomiting: No
--- NOTE | 2024-09-13 11:07 | PCM.POSTANE2 ---
Anesthesia Postop Eval I Sum Postop Eval Completion status Anesthesia document: Postop Eval 1 completed: Yes Anesthesia Postop Eval I Summary Anesthesia Postop Eval I Summary: Anesthesia Postop Eval I: Assessment Summary Airway patent Yes 09/13/24 09:15 MOVEMENT EDUCATION [email or web address] Spontaneous unlabored Yes 09/13/24 09:15 MOVEMENT EDUCATION SPECIALIST.[email or web address] respirations Mental status Awake,Calm 09/13/24 09:15 MOVEMENT EDUCATION [email or web address] nausea Yes 09/13/24 09:15 MOVEMENT EDUCATION [email or web address] Vomiting No 09/13/24 09:15 MOVEMENT EDUCATION SPECIALIST.[email or web address] Anesthesia Postop Eval I: Fluid Summary Crystalloid volume administer 1,100 09/13/24 09:15 MOVEMENT EDUCATION SPECIALIST.[email or web address] (ml) Colloids volume administered ( ml) Blood Product volume administered (ml) Total IV fluid infused 1,100 09/13/24 09:15 MOVEMENT EDUCATION SPECIALIST.[email or web address] Anesthesia Postop Eval I: Summary Notes Anesthesia Complication No 09/13/24 09:15 MOVEMENT EDUCATION [email or web address].[email or web address] Anesthesia Complication Comment: Post-operative progress note Anesthesia: Postop Eval II Evaluation Mental status: Awake Pain Level: 3 nausea: No Vomiting: No
== END 2024-09-13 11:34 | disposition home or self-care (01) ==
LOC: SDC 06:00 → AC 06:01
PROVIDERS: PCP Nurse Practitioner; Referring Provider Surgery; Visit Provider Surgery
PROC: 0FT44ZZ Resection of Gallbladder, Percutaneous Endoscopic Approach (ICD-10-PCS; CPT 47562; principal; 2024-09-13 07:15)
DX: K81.1 Chronic cholecystitis (principal); Z79.899 Other long term (current) drug therapy
CPT/HCPCS: 47562; 00790; 88304; 93005; J2405